=== PATIENT | female | born 1990 | race African-American/Black ===

== ENCOUNTER 2017-08-23 17:10 | Emergency (ER) | payer BC ==
[~2017-08-23] VITALS: Ht 162.6 cm; Wt 68.0 kg
--- NOTE | ~2017-08-23 | EKG ---
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
--- NOTE | ~2017-08-23 | EKG ---
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
[2017-08-23] MEDS ORDERED: TRAMADOL 50 MG50 MG PO (18:19)
[2017-08-23] MEDS ORDERED: XANAX 1 MG TABLE1 MG PO (19:32)
== END 2017-08-23 20:01 | disposition home or self-care (01) ==
LOC: ER 17:10
DX: O99.341 Other mental disorders complicating pregnancy, first trimester (principal); F41.9 Anxiety disorder, unspecified; Z3A.00 Weeks of gestation of pregnancy not specified